=== PATIENT | male | born 1950 | race Two or more races ===

== ENCOUNTER 2024-03-24 14:49 | Inpatient (IN) | payer OTHER ==
[2024-03-24 16:00] LABS: #Basophils 0.09 10x3/uL (0.0-0.2); %Basophils 1.2 % (0.0-1.0); %Lymphocytes 24.8 % (21.0-51.0); %Monocytes 8.9 % (0.0-10.0); %Neutrophils 60.8 % (42.0-75.0); Hematocrit 34.5 % (42.0-52.0); Hemoglobin 11.1 g/dL (14.0-18.0); Mean Corpuscular HGB CONC 32.2 g/dL (32.0-36.0); Mean Corpuscular Volume 87.1 fL (78.0-98.0); Mean Platelet Volume 11.3 fL (7.4-10.4); Platelet Count 213 10x3/uL (130-400); RBC Distribution Width 14.3 % (11.5-14.5); Red Blood Cell (RBC) Count 3.96 mill/uL (4.70-6.10)
[2024-03-24 16:19] LABS: ALT (SGPT) Less than 5 U/L (8-55); AST (SGOT) 8 U/L (5-34); Albumin 3.6 g/dL (3.4-4.8); Alkaline Phosphatase 99 U/L (40-110); Anion Gap 14 mmol/L (10-20); BUN (Urea Nitrogen) 50 mg/dL (8.4-25.7); Bilirubin, Total 0.4 mg/dL (0.2-1.2); Calc. Creatinine Clearance 0 mL/min (70-130); Calcium 8.5 mg/dL (7.8-10.44); Carbon Dioxide 19 mmol/L (23-31); Chloride 109 mmol/L (98-107); Estimated GFR 10; Globulin 4.9 g/dL (2.4-3.5); Glucose 103 mg/dL (83-110); Lipase 113 U/L (8-78); Magnesium 1.9 mg/dL (1.6-2.6); Potassium 5.2 mmol/L (3.5-5.1); Protein, Total 8.5 g/dL (5.8-8.1); Sodium 137 mmol/L (136-145)
[2024-03-24 16:23] LABS: Troponin I 0.021 ng/mL (< 0.028)
[2024-03-24 16:38] LABS: Bacteria/HPF None Seen HPF (None Seen); Bilirubin Negative (Negative); Blood, Urine 1+ (Negative); CAUTI Indications for Culture Dysuria,urgency,freq; Clarity Clear (Clear); Glucose, Urine (Dipstick) 30 mg/dL (Negative); Ketone, Urine Negative (Negative); Leukocyte Negative Leu/uL (Negative); Nitrite Negative (Negative); Protein, Urine (Dipstick) 300 mg/dL (Neg-Trace); RBC/HPF 0-3 HPF (0-3); Specific Gravity, Urine 1.007 (1.002-1.036); Squamous Epithelial 0-3 HPF (0-3); Urobilinogen Normal mg/dL (Less than 2); WBC/HPF 0-3 HPF (0-3); pH, Urine 5.5 (5.0-9.0)
[2024-03-24 16:40] LABS: Urine Culture Reflex No No
[2024-03-24] MEDS ORDERED: Dextrose 50% Abboject 50 ML SYRINGE SLOW IVP PRN (18:02)
[2024-03-24] MEDS ORDERED: Glucagon 1 MG/ML KIT IM PRN (18:02)
[2024-03-24] MEDS ORDERED: Dextrose 5% in Water 1,000 ML IV PRN (18:02)
[2024-03-24] MEDS ORDERED: Ondansetron PF 4 MG/2 ML Vial IVP PRN (18:11)
[2024-03-24] MEDS ORDERED: Insulin Lispro 100 UNIT/ML 10 ML VIAL SC PRN (18:11)
[2024-03-24] MEDS ORDERED: Ondansetron ODT 4 MG TAB PO PRN (18:11)
[2024-03-24 19:22] VITALS: BMI 24.7
[2024-03-24] MEDS: Sodium Chloride 0.9% 1,000 ML IV SCH (19:23)
[2024-03-24] MEDS: Sodium Bicarbonate Tab 325 MG TAB PO SCH (22:28)
[2024-03-25] MEDS: Acetaminophen 325 MG TAB PO PRN (04:14)
[2024-03-25 04:59] LABS: #Basophils 0.12 10x3/uL (0.0-0.2); %Basophils 1.8 % (0.0-1.0); %Lymphocytes 26.8 % (21.0-51.0); %Monocytes 10.7 % (0.0-10.0); %Neutrophils 52.4 % (42.0-75.0); Hemoglobin 9.8 g/dL (14.0-18.0); Mean Corpuscular HGB CONC 31.6 g/dL (32.0-36.0); Mean Corpuscular Hemoglobin 27.8 pg (27.0-31.0); Mean Corpuscular Volume 87.8 fL (78.0-98.0); Platelet Count 192 10x3/uL (130-400); RBC Distribution Width 14.3 % (11.5-14.5); Red Blood Cell (RBC) Count 3.53 mill/uL (4.70-6.10)
[2024-03-25 05:15] LABS: Phosphorus 4.7 mg/dL (2.3-4.7)
[2024-03-25 05:19] LABS: Anion Gap 14 mmol/L (10-20); BUN (Urea Nitrogen) 46 mg/dL (8.4-25.7); Calc. Creatinine Clearance 13 mL/min (70-130); Carbon Dioxide 18 mmol/L (23-31); Chloride 114 mmol/L (98-107); Estimated GFR 12; Glucose 76 mg/dL (83-110); Iron 29 ug/dL (65-175); Iron Binding Capacity, Total 248 mcg/dL (261-462); Iron Binding Capacity, Total 251 mcg/dL (261-462); Potassium 4.7 mmol/L (3.5-5.1); Sodium 141 mmol/L (136-145)
[2024-03-25 06:01] LABS: Ferritin 54.01 ng/mL (22-322)
[2024-03-25 07:02] LABS: Influenza A by NAA Not Detected (NotDetected); Influenza B by NAA Not Detected (NotDetected); SARS-CoV-2 NAA Rapid Test Not Detected (NotDetected)
[2024-03-25] MEDS: Amlodipine 5 MG TAB PO SCH (08:14)
[2024-03-25] MEDS: Rosuvastatin 10 MG TAB PO SCH (08:15)
[2024-03-25 12:23] LABS: Hep C IgG Ab NONREACTIVE S/CO (NonReactive); Hep C Index 0.14 S/CO (0-0.79)
[2024-03-25 13:13] LABS: Creatinine, Urine 32.19 mg/dL (63-166)
[2024-03-25 13:54] LABS: HBsAg Index 0.35 S/CO (0-0.99); Hep B Surf Ag NonReactive S/CO (NonReactive)
[2024-03-25] MEDS: Ferrous Sulfate 325 MG TAB PO SCH (17:04)
[2024-03-25] MEDS: Insulin Lispro 100 UNIT/ML 10 ML VIAL SC PRN (17:05)
[2024-03-25] MEDS: Sodium Bicarbonate Tab 325 MG TAB PO SCH (19:37)
[2024-03-26 06:09] LABS: %Basophils 1.4 % (0.0-1.0); %Eosinophils 8.9 % (0.0-10.0); %Lymphocytes 24.9 % (21.0-51.0); %Monocytes 9.2 % (0.0-10.0); %Neutrophils 55.2 % (42.0-75.0); Hemoglobin 10.2 g/dL (14.0-18.0); Mean Corpuscular HGB CONC 31.9 g/dL (32.0-36.0); Mean Corpuscular Hemoglobin 27.7 pg (27.0-31.0); Mean Platelet Volume 11.6 fL (7.4-10.4); Platelet Count 184 10x3/uL (130-400); RBC Distribution Width 14.3 % (11.5-14.5); Red Blood Cell (RBC) Count 3.68 mill/uL (4.70-6.10)
[2024-03-26 06:45] LABS: Anion Gap 13 mmol/L (10-20); BUN (Urea Nitrogen) 40 mg/dL (8.4-25.7); Calc. Creatinine Clearance 15 mL/min (70-130); Calcium 7.9 mg/dL (7.8-10.44); Carbon Dioxide 19 mmol/L (23-31); Chloride 115 mmol/L (98-107); Estimated GFR 14; Glucose 82 mg/dL (83-110); Iron 44 ug/dL (65-175); Iron Binding Capacity, Total 245 mcg/dL (261-462); Potassium 4.9 mmol/L (3.5-5.1); Sodium 142 mmol/L (136-145)
[2024-03-26] MEDS: Benzonatate 100 MG CAP PO PRN (20:33)
[2024-03-27 04:56] LABS: %Basophils 1.3 % (0.0-1.0); %Eosinophils 8.9 % (0.0-10.0); %Monocytes 9.8 % (0.0-10.0); %Neutrophils 46.6 % (42.0-75.0); Hematocrit 28.8 % (42.0-52.0); Hemoglobin 9.2 g/dL (14.0-18.0); Mean Corpuscular HGB CONC 31.9 g/dL (32.0-36.0); Mean Corpuscular Hemoglobin 27.5 pg (27.0-31.0); Mean Platelet Volume 11.9 fL (7.4-10.4); Platelet Count 178 10x3/uL (130-400); RBC Distribution Width 14.1 % (11.5-14.5); Red Blood Cell (RBC) Count 3.35 mill/uL (4.70-6.10)
[2024-03-27 05:18] LABS: Anion Gap 11 mmol/L (10-20); BUN (Urea Nitrogen) 34 mg/dL (8.4-25.7); Calc. Creatinine Clearance 15 mL/min (70-130); Calcium 7.6 mg/dL (7.8-10.44); Carbon Dioxide 18 mmol/L (23-31); Chloride 115 mmol/L (98-107); Estimated GFR 14; Glucose 83 mg/dL (83-110); Potassium 4.3 mmol/L (3.5-5.1); Sodium 140 mmol/L (136-145)
[2024-03-27] MEDS: Calcitriol 0.25 MCG CAP PO SCH (09:48)
[2024-03-28 04:44] LABS: #Basophils 0.11 10x3/uL (0.0-0.2); %Basophils 1.6 % (0.0-1.0); %Eosinophils 9.2 % (0.0-10.0); %Lymphocytes 31.6 % (21.0-51.0); %Monocytes 11.1 % (0.0-10.0); %Neutrophils 46.1 % (42.0-75.0); Hematocrit 28.9 % (42.0-52.0); Hemoglobin 9.3 g/dL (14.0-18.0); Mean Corpuscular HGB CONC 32.2 g/dL (32.0-36.0); Mean Corpuscular Hemoglobin 28.3 pg (27.0-31.0); Mean Corpuscular Volume 87.8 fL (78.0-98.0); Mean Platelet Volume 11.9 fL (7.4-10.4); Platelet Count 165 10x3/uL (130-400); RBC Distribution Width 14.3 % (11.5-14.5); Red Blood Cell (RBC) Count 3.29 mill/uL (4.70-6.10)
[2024-03-28 05:36] LABS: Anion Gap 13 mmol/L (10-20); BUN (Urea Nitrogen) 29 mg/dL (8.4-25.7); Calc. Creatinine Clearance 17 mL/min (70-130); Calcium 7.6 mg/dL (7.8-10.44); Carbon Dioxide 18 mmol/L (23-31); Chloride 115 mmol/L (98-107); Estimated GFR 16; Glucose 79 mg/dL (83-110); Potassium 4.1 mmol/L (3.5-5.1); Sodium 142 mmol/L (136-145)
[2024-03-28 09:25] LABS: %Basophils 1.4 % (0.0-1.0); %Eosinophils 7.8 % (0.0-10.0); %Monocytes 7.9 % (0.0-10.0); %Neutrophils 57.5 % (42.0-75.0); Hematocrit 29.6 % (42.0-52.0); Hemoglobin 9.4 g/dL (14.0-18.0); Mean Corpuscular HGB CONC 31.8 g/dL (32.0-36.0); Mean Corpuscular Hemoglobin 27.9 pg (27.0-31.0); Mean Corpuscular Volume 87.8 fL (78.0-98.0); Mean Platelet Volume 11.5 fL (7.4-10.4); Platelet Count 183 10x3/uL (130-400); RBC Distribution Width 14.3 % (11.5-14.5); Red Blood Cell (RBC) Count 3.37 mill/uL (4.70-6.10)
[2024-03-28] MEDS: Guaifenesin DM 100-10/5 ML UDCUP PO PRN (10:17)
[2024-03-28] MEDS ORDERED: hydrALAZINE 25 MG TAB PO PRN (12:42)
[2024-03-28] MEDS ORDERED: Labetalol HCl 100 MG/20 ML VIAL SLOW IVP PRN (12:43)
[2024-03-28] MEDS: Amlodipine 5 MG TAB PO SCH (13:13)
[2024-03-28] MEDS: Benzonatate 100 MG CAP PO SCH (16:21)
[2024-03-28] MEDS: Carvedilol 3.125 MG TAB PO SCH (16:21)
[2024-03-28] MEDS: Senokot S 8.6-50 MG TAB PO SCH (20:37)
[2024-03-28] MEDS ORDERED: guaiFENesin ER 600 MG TAB PO SCH (21:00)
[2024-03-29 06:02] LABS: Anion Gap 11 mmol/L (10-20); BUN (Urea Nitrogen) 26 mg/dL (8.4-25.7); Calc. Creatinine Clearance 18 mL/min (70-130); Calcium 7.6 mg/dL (7.8-10.44); Carbon Dioxide 18 mmol/L (23-31); Chloride 115 mmol/L (98-107); Estimated GFR 16; Glucose 76 mg/dL (83-110); Potassium 4.1 mmol/L (3.5-5.1); Sodium 140 mmol/L (136-145)
[2024-03-29] MEDS: Cyanocobalamin (Vitamin B-12) 1,000 MCG TAB PO SCH (10:19)
[2024-03-29] MEDS: Amlodipine 10 MG TAB PO SCH (10:21)
[2024-03-30 05:08] LABS: #Basophils 0.08 10x3/uL (0.0-0.2); %Eosinophils 7.2 % (0.0-10.0); %Lymphocytes 24.5 % (21.0-51.0); %Monocytes 6.7 % (0.0-10.0); %Neutrophils 60.2 % (42.0-75.0); Hematocrit 27.7 % (42.0-52.0); Mean Corpuscular HGB CONC 32.5 g/dL (32.0-36.0); Mean Platelet Volume 11.7 fL (7.4-10.4); Platelet Count 180 10x3/uL (130-400); RBC Distribution Width 14.2 % (11.5-14.5); Red Blood Cell (RBC) Count 3.22 mill/uL (4.70-6.10)
[2024-03-30 05:21] LABS: Anion Gap 10 mmol/L (10-20); BUN (Urea Nitrogen) 25 mg/dL (8.4-25.7); Calc. Creatinine Clearance 17 mL/min (70-130); Calcium 7.6 mg/dL (7.8-10.44); Carbon Dioxide 19 mmol/L (23-31); Chloride 118 mmol/L (98-107); Estimated GFR 16; Glucose 80 mg/dL (83-110); Potassium 4.2 mmol/L (3.5-5.1); Sodium 143 mmol/L (136-145)
[2024-03-30 11:13] VITALS: BP 154/72; TEMP 98.1
== END 2024-03-30 14:31 | disposition home or self-care (01) | DRG 683 ==
LOC: ERS 14:49 → OBS 17:48 → OBSVTOIN 03-25 11:17
PROVIDERS: ADMIT Internal Medicine; ATTEND Internal Medicine
DX: N17.9 Acute kidney failure, unspecified (principal); E87.20 Acidosis, unspecified; E87.5 Hyperkalemia; N18.30 Chronic kidney disease, stage 3 unspecified; E53.8 Deficiency of other specified B group vitamins; E55.9 Vitamin D deficiency, unspecified; E11.22 Type 2 diabetes mellitus with diabetic chronic kidney disease; N25.81 Secondary hyperparathyroidism of renal origin; D63.1 Anemia in chronic kidney disease; I13.10 Hypertensive heart and chronic kidney disease without heart failure, with stage 1 through stage 4 chronic kidney disease, or unspecified chronic kidney disease; I35.1 Nonrheumatic aortic (valve) insufficiency; I25.10 Atherosclerotic heart disease of native coronary artery without angina pectoris; E78.5 Hyperlipidemia, unspecified; I34.0 Nonrheumatic mitral (valve) insufficiency; E11.649 Type 2 diabetes mellitus with hypoglycemia without coma; R50.9 Fever, unspecified; Z95.5 Presence of coronary angioplasty implant and graft; Z79.899 Other long term (current) drug therapy; Z79.84 Long term (current) use of oral hypoglycemic drugs
CPT/HCPCS: 36415; 36416; 71045; 76770; 80048; 80053; 81001; 82042; 82570; 82607; 82728; 83540; 83550; 83690; 83735; 83880; 83970; 84100; 84156; 84484; 85025; 86803; 87040; 87340; 93005; 93306; G0378; J1815

== ENCOUNTER 2024-04-03 08:05 | Outpatient (CLI) | payer OTHER | END 2024-04-03 08:06 | disposition home or self-care (01) | LOC: SCSRAD 08:05 | PROVIDERS: ATTEND Student in an Organized Health Care Education/Training Program | DX: R06.00 Dyspnea, unspecified (principal); J90 Pleural effusion, not elsewhere classified | CPT/HCPCS: 71046 ==

== ENCOUNTER 2024-04-03 15:01 | Inpatient (IN) | payer OTHER ==
[2024-04-03] MEDS ORDERED: Albuterol 2.5 MG (3 mL) NEB ONE (16:00)
[2024-04-03] MEDS ORDERED: Ipratropium Bromide 2.5 ml Neb ONE (16:00)
[2024-04-03 16:15] LABS: ALT (SGPT) 7 U/L (8-55); AST (SGOT) 9 U/L (5-34); Albumin 3.3 g/dL (3.4-4.8); Alkaline Phosphatase 99 U/L (40-110); Anion Gap 17 mmol/L (10-20); BUN (Urea Nitrogen) 42 mg/dL (8.4-25.7); Bilirubin, Total 0.4 mg/dL (0.2-1.2); Calc. Creatinine Clearance 0 mL/min (70-130); Calcium 7.8 mg/dL (7.8-10.44); Carbon Dioxide 15 mmol/L (23-31); Chloride 113 mmol/L (98-107); Estimated GFR 11; Glucose 130 mg/dL (83-110); Potassium 4.5 mmol/L (3.5-5.1); Protein, Total 8.3 g/dL (5.8-8.1); Sodium 140 mmol/L (136-145)
[2024-04-03 16:16] LABS: #Basophils 0.08 10x3/uL (0.0-0.2); %Basophils 0.7 % (0.0-1.0); %Eosinophils 0.9 % (0.0-10.0); %Lymphocytes 18.9 % (21.0-51.0); %Monocytes 7.7 % (0.0-10.0); %Neutrophils 70.8 % (42.0-75.0); Hematocrit 32.8 % (42.0-52.0); Hemoglobin 10.8 g/dL (14.0-18.0); Mean Corpuscular HGB CONC 32.9 g/dL (32.0-36.0); Mean Corpuscular Hemoglobin 27.8 pg (27.0-31.0); Mean Corpuscular Volume 84.5 fL (78.0-98.0); Mean Platelet Volume 11.1 fL (7.4-10.4); Platelet Count 257 10x3/uL (130-400); RBC Distribution Width 14.5 % (11.5-14.5); Red Blood Cell (RBC) Count 3.88 mill/uL (4.70-6.10)
[2024-04-03 16:22] LABS: Troponin I 0.038 ng/mL (< 0.028)
[2024-04-03 16:28] LABS: Bacteria/HPF None Seen HPF (None Seen); Bilirubin Negative (Negative); Blood, Urine 1+ (Negative); CAUTI Indications for Culture Dysuria,urgency,freq; Clarity Clear (Clear); Glucose, Urine (Dipstick) 70 mg/dL (Negative); Ketone, Urine Negative (Negative); Leukocyte Negative Leu/uL (Negative); Nitrite Negative (Negative); Protein, Urine (Dipstick) 200 mg/dL (Neg-Trace); RBC/HPF 0-3 HPF (0-3); Specific Gravity, Urine 1.004 (1.002-1.036); Squamous Epithelial 0-3 HPF (0-3); Urobilinogen Normal mg/dL (Less than 2); WBC/HPF 0-3 HPF (0-3); pH, Urine 5.5 (5.0-9.0)
[2024-04-03 16:48] LABS: Urine Culture Reflex No No
[2024-04-03] MEDS ORDERED: Acetaminophen 650 MG Suppository PR PRN (17:31)
[2024-04-03] MEDS ORDERED: Ondansetron PF 4 MG/2 ML Vial IVP PRN (17:31)
[2024-04-03] MEDS ORDERED: Bisacodyl 5 MG TAB PO PRN (17:31)
[2024-04-03] MEDS ORDERED: Ondansetron ODT 4 MG TAB PO PRN (17:31)
[2024-04-03] MEDS ORDERED: Senokot S 8.6-50 MG TAB PO PRN (17:31)
[2024-04-03] MEDS ORDERED: Acetaminophen 325 MG TAB PO PRN (17:31)
[2024-04-03] MEDS ORDERED: Ipratropium/Albuterol 3 ML NEB NEB PRN (17:33)
[2024-04-03] MEDS ORDERED: Insulin Regular, Human 100 UNIT/ML 10 ML VIAL SC PRN ×2 (17:34)
[2024-04-03] MEDS ORDERED: Glucagon 1 MG/ML KIT IM PRN (17:34)
[2024-04-03] MEDS ORDERED: hydrALAZINE 25 MG TAB PO PRN (17:34)
[2024-04-03] MEDS ORDERED: Dextrose 50% Abboject 50 ML SYRINGE SLOW IVP PRN (17:34)
[2024-04-03] MEDS ORDERED: Dextrose 5% in Water 1,000 ML IV PRN (17:34)
[2024-04-03] MEDS: Furosemide 40 MG (4 mL) VIAL SLOW IVP SCH (18:20)
[2024-04-03 19:41] LABS: Troponin I 0.039 ng/mL (< 0.028)
[2024-04-03] MEDS: Heparin 5,000 UNITS/ML VIAL SC SCH (21:28)
[2024-04-05] MEDS ORDERED: Calcitriol 0.25 MCG CAP ONE (09:57)
[2024-04-05] MEDS ORDERED: Rosuvastatin 10 MG TAB ONE (09:57)
[2024-04-05] MEDS ORDERED: Cyanocobalamin (Vitamin B-12) 1,000 MCG TAB ONE (09:57)
[2024-04-05] MEDS ORDERED: Amlodipine 10 MG TAB ONE (09:57)
[2024-04-05] MEDS: Furosemide 40 MG (4 mL) VIAL SLOW IVP SCH (17:54)
[2024-04-05] MEDS: Calcitriol 0.25 MCG CAP PO SCH (17:54)
[2024-04-05] MEDS: Amlodipine 10 MG TAB PO SCH (17:54)
[2024-04-05] MEDS: Rosuvastatin 10 MG TAB PO SCH (17:55)
[2024-04-05] MEDS: Cyanocobalamin (Vitamin B-12) 1,000 MCG TAB PO SCH (17:55)
[2024-04-05] MEDS ORDERED: Heparin 5,000 UNITS/ML VIAL ONE (21:55)
[2024-04-05 23:05] LABS: #Basophils 0.08 10x3/uL (0.0-0.2); %Basophils 0.9 % (0.0-1.0); %Monocytes 7.2 % (0.0-10.0); Hematocrit 31.1 % (42.0-52.0); Hemoglobin 10.2 g/dL (14.0-18.0); Mean Corpuscular HGB CONC 32.8 g/dL (32.0-36.0); Mean Corpuscular Hemoglobin 27.3 pg (27.0-31.0); Mean Corpuscular Volume 83.4 fL (78.0-98.0); Mean Platelet Volume 11.5 fL (7.4-10.4); Platelet Count 249 10x3/uL (130-400); Potassium 4.5 mmol/L (3.5-5.1); RBC Distribution Width 14.1 % (11.5-14.5); Red Blood Cell (RBC) Count 3.73 mill/uL (4.70-6.10); Sodium 140 mmol/L (136-145)
[2024-04-05 23:06] LABS: Carbon Dioxide 19 mmol/L (23-31); Chloride 110 mmol/L (98-107)
[2024-04-05 23:07] LABS: Anion Gap 16 mmol/L (10-20); BUN (Urea Nitrogen) 47 mg/dL (8.4-25.7); Calc. Creatinine Clearance 11 mL/min (70-130); Estimated GFR 9; Glucose 135 mg/dL (83-110)
[2024-04-06 05:18] LABS: #Basophils 0.07 10x3/uL (0.0-0.2); %Basophils 0.7 % (0.0-1.0); %Lymphocytes 24.6 % (21.0-51.0); %Monocytes 8.5 % (0.0-10.0); %Neutrophils 60.5 % (42.0-75.0); Hematocrit 30.7 % (42.0-52.0); Mean Corpuscular HGB CONC 32.6 g/dL (32.0-36.0); Mean Corpuscular Hemoglobin 27.7 pg (27.0-31.0); Platelet Count 276 10x3/uL (130-400); Red Blood Cell (RBC) Count 3.61 mill/uL (4.70-6.10)
[2024-04-06 05:41] LABS: ALT (SGPT) 9 U/L (8-55); AST (SGOT) 11 U/L (5-34); Albumin 2.8 g/dL (3.4-4.8); Alkaline Phosphatase 78 U/L (40-110); Anion Gap 16 mmol/L (10-20); BUN (Urea Nitrogen) 46 mg/dL (8.4-25.7); Bilirubin, Total 0.3 mg/dL (0.2-1.2); Calc. Creatinine Clearance 11 mL/min (70-130); Carbon Dioxide 19 mmol/L (23-31); Chloride 112 mmol/L (98-107); Estimated GFR 9; Globulin 4.6 g/dL (2.4-3.5); Glucose 103 mg/dL (83-110); Potassium 4.4 mmol/L (3.5-5.1); Protein, Total 7.4 g/dL (5.8-8.1); Sodium 143 mmol/L (136-145)
[2024-04-06] MEDS ORDERED: Furosemide 40 MG (4 mL) VIAL ONE (05:56)
[2024-04-06] MEDS: Furosemide 40 MG (4 mL) VIAL ONE (06:02)
[2024-04-06] MEDS ORDERED: Epoetin (ESRD) 20,000 UNITS/ML MDV SC SCH (08:45)
[2024-04-06] MEDS ORDERED: Non-Formulary Item 1 EACH (Albuterol 200 PUFF Inh) INH PRN (09:07)
[2024-04-06 11:27] LABS: Critical Call Chem Troponin I CRITICAL CALL TEST; Troponin I 0.587 ng/mL (< 0.028)
[2024-04-06] MEDS: EPOETIN ALFA-EPBX (ESRD) 10,000 UNITS/ML VIAL SC SCH (13:25)
[2024-04-06 14:32] LABS: HBSAB Concentration Less than 8.00 mIU/mL; HBsAg Index 0.26 S/CO (0-0.99); Hep B Core Total Ab NONREACTIVE (NonReactive); Hep B Core Total Index 0.42 S/CO (0-0.79); Hep B Surf AB NONREACTIVE (NonReactive); Hep B Surf Ag NONREACTIVE S/CO (NonReactive); Hep C IgG Ab NONREACTIVE S/CO (NonReactive); Hep C Index 0.16 S/CO (0-0.79)
[2024-04-06] MEDS: Sodium Bicarbonate Tab 325 MG TAB PO SCH (21:37)
[2024-04-07 07:08] LABS: #Basophils 0.09 10x3/uL (0.0-0.2); %Eosinophils 7.5 % (0.0-10.0); %Lymphocytes 25.1 % (21.0-51.0); %Neutrophils 56.8 % (42.0-75.0); Hematocrit 29.4 % (42.0-52.0); Hemoglobin 9.6 g/dL (14.0-18.0); Mean Corpuscular HGB CONC 32.7 g/dL (32.0-36.0); Mean Corpuscular Hemoglobin 27.8 pg (27.0-31.0); Mean Corpuscular Volume 85.2 fL (78.0-98.0); Mean Platelet Volume 11.5 fL (7.4-10.4); Platelet Count 275 10x3/uL (130-400); RBC Distribution Width 14.1 % (11.5-14.5); Red Blood Cell (RBC) Count 3.45 mill/uL (4.70-6.10)
[2024-04-07 07:44] LABS: Anion Gap 18 mmol/L (10-20); BUN (Urea Nitrogen) 47 mg/dL (8.4-25.7); Calc. Creatinine Clearance 11 mL/min (70-130); Calcium 7.9 mg/dL (7.8-10.44); Carbon Dioxide 20 mmol/L (23-31); Chloride 108 mmol/L (98-107); Estimated GFR 9; Glucose 94 mg/dL (83-110); Potassium 4.5 mmol/L (3.5-5.1); Sodium 141 mmol/L (136-145)
[2024-04-07] MEDS: Guaifenesin DM 100-10/5 ML UDCUP PO PRN (13:11)
[2024-04-07] MEDS ORDERED: CEFAZOLIN 2 GM in Sodium Chloride 0.9% 100 ML IVPB SCH (13:45)
[2024-04-07] MEDS: Ipratropium/Albuterol 3 ML NEB NEB SCH ×2 (14:43→18:33)
[2024-04-07] MEDS: Sodium Chloride 0.9% 1,000 ML IV SCH (15:49)
[2024-04-08] MEDS: Albuterol 200 PUFF (6.7GM INHALER) INH PRN (06:58)
[2024-04-08 07:43] LABS: #Basophils 0.11 10x3/uL (0.0-0.2); %Basophils 1.2 % (0.0-1.0); %Eosinophils 8.4 % (0.0-10.0); %Lymphocytes 22.4 % (21.0-51.0); %Monocytes 8.4 % (0.0-10.0); %Neutrophils 59.2 % (42.0-75.0); Hematocrit 28.3 % (42.0-52.0); Hemoglobin 9.1 g/dL (14.0-18.0); Mean Corpuscular HGB CONC 32.2 g/dL (32.0-36.0); Mean Corpuscular Hemoglobin 27.4 pg (27.0-31.0); Mean Corpuscular Volume 85.2 fL (78.0-98.0); Mean Platelet Volume 11.3 fL (7.4-10.4); Platelet Count 275 10x3/uL (130-400); RBC Distribution Width 14.2 % (11.5-14.5); Red Blood Cell (RBC) Count 3.32 mill/uL (4.70-6.10)
[2024-04-08 08:09] LABS: Anion Gap 19 mmol/L (10-20); BUN (Urea Nitrogen) 45 mg/dL (8.4-25.7); Calc. Creatinine Clearance 11 mL/min (70-130); Calcium 7.7 mg/dL (7.8-10.44); Carbon Dioxide 20 mmol/L (23-31); Chloride 106 mmol/L (98-107); Estimated GFR 10; Glucose 121 mg/dL (83-110); Iron 24 ug/dL (65-175); Iron Binding Capacity, Total 206 mcg/dL (261-462); Potassium 4.2 mmol/L (3.5-5.1); Sodium 141 mmol/L (136-145)
[2024-04-08] MEDS: Ferrous Sulfate 325 MG TAB PO SCH ×2 (08:39→17:07)
[2024-04-08] MEDS: Calcium Carbonate 500 MG ChewTAB PO SCH (09:53)
[2024-04-08] MEDS: Benzonatate 100 MG CAP PO SCH (17:06)
[2024-04-08] MEDS: guaiFENesin/DM ER PO SCH (21:41)
[2024-04-09] MEDS: Acetaminophen 650 MG/20.3 ML UDCUP PO PRN (04:35)
[2024-04-09] MEDS: ALPRAZolam 0.5 MG TAB PO SCH (04:43)
[2024-04-09 05:37] LABS: %Basophils 1.2 % (0.0-1.0); %Eosinophils 8.2 % (0.0-10.0); %Monocytes 9.6 % (0.0-10.0); %Neutrophils 52.4 % (42.0-75.0); Hematocrit 27.5 % (42.0-52.0); Hemoglobin 9.1 g/dL (14.0-18.0); Mean Corpuscular HGB CONC 33.1 g/dL (32.0-36.0); Mean Corpuscular Hemoglobin 27.4 pg (27.0-31.0); Mean Corpuscular Volume 82.8 fL (78.0-98.0); Mean Platelet Volume 11.7 fL (7.4-10.4); Platelet Count 269 10x3/uL (130-400); RBC Distribution Width 14.3 % (11.5-14.5); Red Blood Cell (RBC) Count 3.32 mill/uL (4.70-6.10)
[2024-04-09 05:56] LABS: Anion Gap 15 mmol/L (10-20); BUN (Urea Nitrogen) 40 mg/dL (8.4-25.7); Calc. Creatinine Clearance 11 mL/min (70-130); Calcium 8.2 mg/dL (7.8-10.44); Carbon Dioxide 20 mmol/L (23-31); Chloride 106 mmol/L (98-107); Estimated GFR 10; Glucose 102 mg/dL (83-110); Potassium 4.2 mmol/L (3.5-5.1); Sodium 137 mmol/L (136-145)
[2024-04-09 12:01] LABS: Critical Call Chem Troponin I NUR.PD7
[2024-04-09 12:02] LABS: Troponin I 0.911 ng/mL (< 0.028)
[2024-04-09] MEDS: Nitroglycerin 0.4 MG TAB (25 Tab Bottle) ONE (15:59)
[2024-04-09 16:11] LABS: Troponin I 0.098 ng/mL (< 0.028)
[2024-04-09] MEDS ORDERED: Nitroglycerin 0.4 MG TAB (25 Tab Bottle) SL PRN (16:37)
[2024-04-09] MEDS: Aspirin 325 MG TAB PO SCH (17:01)
[2024-04-09 19:50] LABS: Troponin I 0.101 ng/mL (< 0.028)
[2024-04-10 05:46] LABS: #Basophils 0.11 10x3/uL (0.0-0.2); %Basophils 1.4 % (0.0-1.0); %Eosinophils 10.5 % (0.0-10.0); %Lymphocytes 25.7 % (21.0-51.0); %Monocytes 9.5 % (0.0-10.0); %Neutrophils 52.5 % (42.0-75.0); Hemoglobin 8.4 g/dL (14.0-18.0); Mean Corpuscular HGB CONC 32.3 g/dL (32.0-36.0); Mean Corpuscular Hemoglobin 27.5 pg (27.0-31.0); Mean Corpuscular Volume 85.2 fL (78.0-98.0); Mean Platelet Volume 11.2 fL (7.4-10.4); Platelet Count 256 10x3/uL (130-400); RBC Distribution Width 14.3 % (11.5-14.5); Red Blood Cell (RBC) Count 3.05 mill/uL (4.70-6.10)
[2024-04-10 05:54] VITALS: BMI 24.3
[2024-04-10 06:25] LABS: Anion Gap 13 mmol/L (10-20); BUN (Urea Nitrogen) 44 mg/dL (8.4-25.7); Calc. Creatinine Clearance 11 mL/min (70-130); Calcium 8.1 mg/dL (7.8-10.44); Carbon Dioxide 22 mmol/L (23-31); Chloride 107 mmol/L (98-107); Estimated GFR 10; Glucose 83 mg/dL (83-110); Potassium 5.1 mmol/L (3.5-5.1); Sodium 137 mmol/L (136-145)
[2024-04-10 08:18] VITALS: BP 126/61; TEMP 97.9
[2024-04-10] MEDS: Aspirin Chewable 81 MG TAB PO SCH (09:09)
[2024-04-11 15:14] LABS: A/G Ratio 0.8 (0.7-1.7); Albumin 2.9 g/dL (2.9-4.4); Alpha 1 0.3 g/dL (0.0-0.4); Alpha 2 0.9 g/dL (0.4-1.0); Beta 0.8 g/dL (0.7-1.3); Gamma 1.7 g/dL (0.4-1.8); Globulin, Total 3.6 g/dL (2.2-3.9); M-Spike Not Observed g/dL (Not Observed)
[2024-04-12 16:15] LABS: Albumin-Ur 55.1 % (.); Alpha 1 - Ur 3.5 % (.); Alpha 2 - Ur 8.3 % (.); Beta-Ur 14.2 % (.); Gamma-Ur 18.8 % (.); M-Spike,% Not Observed % (Not Observed); Protein, Urine 108.2 mg/dL (Not Estab.)
== END 2024-04-10 14:23 | disposition home or self-care (01) | DRG 682 ==
LOC: ERS 15:01 → OBS 16:48 → OBSVTOIN 04-06 09:07
PROVIDERS: ADMIT Internal Medicine; ATTEND Family Medicine
DX: N17.9 Acute kidney failure, unspecified (principal); I21.A1 Myocardial infarction type 2; I13.2 Hypertensive heart and chronic kidney disease with heart failure and with stage 5 chronic kidney disease, or end stage renal disease; N18.6 End stage renal disease; N25.81 Secondary hyperparathyroidism of renal origin; I50.9 Heart failure, unspecified; E11.22 Type 2 diabetes mellitus with diabetic chronic kidney disease; E78.5 Hyperlipidemia, unspecified; D63.1 Anemia in chronic kidney disease; I25.10 Atherosclerotic heart disease of native coronary artery without angina pectoris; R91.8 Other nonspecific abnormal finding of lung field; Z95.5 Presence of coronary angioplasty implant and graft; Z53.20 Procedure and treatment not carried out because of patient's decision for unspecified reasons; Z79.899 Other long term (current) drug therapy; E83.51 Hypocalcemia; R07.9 Chest pain, unspecified; R80.9 Proteinuria, unspecified; I35.1 Nonrheumatic aortic (valve) insufficiency; E11.21 Type 2 diabetes mellitus with diabetic nephropathy
CPT/HCPCS: 36415; 36416; 71045; 80048; 80053; 82728; 83540; 83550; 83880; 84155; 84156; 84165; 84166; 84484; 85025; 86704; 86706; 86803; 87340; 93005; 93010; 94640; 94760; 96372; 96374; 96376; G0378; J1644; J1940; J7620

== ENCOUNTER 2024-04-13 14:46 | Emergency (ER) | payer OTHER | END 2024-04-13 15:09 | disposition home or self-care (01) | LOC: ERS 14:46 | DX: Z53.21 Procedure and treatment not carried out due to patient leaving prior to being seen by health care provider (principal) ==

== ENCOUNTER 2024-04-13 15:29 | Observation (INO) | payer OTHER ==
[2024-04-13 17:21] LABS: %Basophils 1.3 % (0.0-1.0); %Eosinophils 8.4 % (0.0-10.0); %Lymphocytes 29.2 % (21.0-51.0); %Monocytes 9.6 % (0.0-10.0); Hematocrit 30.2 % (42.0-52.0); Hemoglobin 9.6 g/dL (14.0-18.0); Mean Corpuscular HGB CONC 31.8 g/dL (32.0-36.0); Mean Corpuscular Hemoglobin 27.5 pg (27.0-31.0); Mean Corpuscular Volume 86.5 fL (78.0-98.0); Mean Platelet Volume 11.5 fL (7.4-10.4); Platelet Count 285 10x3/uL (130-400); RBC Distribution Width 14.3 % (11.5-14.5); Red Blood Cell (RBC) Count 3.49 mill/uL (4.70-6.10)
[2024-04-13 17:48] LABS: ALT (SGPT) 10 U/L (8-55); AST (SGOT) 12 U/L (5-34); Albumin 3.1 g/dL (3.4-4.8); Alkaline Phosphatase 75 U/L (40-110); Anion Gap 16 mmol/L (10-20); BUN (Urea Nitrogen) 44 mg/dL (8.4-25.7); Bilirubin, Total 0.3 mg/dL (0.2-1.2); Calc. Creatinine Clearance 0 mL/min (70-130); Calcium 8.3 mg/dL (7.8-10.44); Carbon Dioxide 20 mmol/L (23-31); Chloride 106 mmol/L (98-107); Estimated GFR 8; Globulin 4.9 g/dL (2.4-3.5); Glucose 104 mg/dL (83-110); Potassium 5.3 mmol/L (3.5-5.1); Sodium 137 mmol/L (136-145)
[2024-04-13 17:49] LABS: Magnesium 2.4 mg/dL (1.6-2.6)
[2024-04-13] MEDS ORDERED: Ondansetron PF 4 MG/2 ML Vial IVP PRN (18:16)
[2024-04-13] MEDS ORDERED: Ondansetron ODT 4 MG TAB PO PRN (18:16)
[2024-04-13] MEDS ORDERED: Acetaminophen 325 MG TAB PO PRN (18:16)
[2024-04-13] MEDS ORDERED: hydrALAZINE 25 MG TAB PO PRN (19:04)
[2024-04-13] MEDS: Heparin 5,000 UNITS/ML VIAL SC SCH (22:08)
[2024-04-13] MEDS: Sodium Bicarbonate Tab 325 MG TAB PO SCH (22:08)
[2024-04-13 23:53] VITALS: BMI 25.7
[2024-04-14 05:29] LABS: #Basophils 0.09 10x3/uL (0.0-0.2); %Basophils 1.4 % (0.0-1.0); %Eosinophils 11.5 % (0.0-10.0); %Lymphocytes 33.3 % (21.0-51.0); %Monocytes 10.6 % (0.0-10.0); %Neutrophils 42.9 % (42.0-75.0); Hematocrit 27.5 % (42.0-52.0); Hemoglobin 8.8 g/dL (14.0-18.0); Mean Corpuscular Hemoglobin 27.3 pg (27.0-31.0); Mean Corpuscular Volume 85.4 fL (78.0-98.0); Mean Platelet Volume 11.1 fL (7.4-10.4); Platelet Count 252 10x3/uL (130-400); Red Blood Cell (RBC) Count 3.22 mill/uL (4.70-6.10)
[2024-04-14 05:44] LABS: ALT (SGPT) 6 U/L (8-55); AST (SGOT) 10 U/L (5-34); Albumin 2.7 g/dL (3.4-4.8); Alkaline Phosphatase 65 U/L (40-110); Anion Gap 15 mmol/L (10-20); BUN (Urea Nitrogen) 44 mg/dL (8.4-25.7); Bilirubin, Total 0.3 mg/dL (0.2-1.2); Calc. Creatinine Clearance 11 mL/min (70-130); Calcium 7.6 mg/dL (7.8-10.44); Carbon Dioxide 21 mmol/L (23-31); Chloride 105 mmol/L (98-107); Estimated GFR 9; Glucose 68 mg/dL (83-110); Potassium 4.7 mmol/L (3.5-5.1); Protein, Total 6.7 g/dL (5.8-8.1); Sodium 136 mmol/L (136-145)
[2024-04-14] MEDS: Cyanocobalamin (Vitamin B-12) 1,000 MCG TAB PO SCH (09:12)
[2024-04-14] MEDS: Amlodipine 10 MG TAB PO SCH (09:12)
[2024-04-14] MEDS: Aspirin Chewable 81 MG TAB PO SCH (09:12)
[2024-04-14] MEDS: Rosuvastatin 10 MG TAB PO SCH (09:12)
[2024-04-14] MEDS: Pantoprazole DR 40 MG TAB PO SCH (09:13)
[2024-04-14] MEDS: Calcitriol 0.25 MCG CAP PO SCH (09:13)
[2024-04-14] MEDS: Ferrous Sulfate 325 MG TAB PO SCH (09:13)
[2024-04-14] MEDS: Sodium Ferric Gluconate 250 MG in Sodium Chloride 0.9% 250 ML 250 ML IVPB SCH (11:09)
[2024-04-14] MEDS: Sodium Bicarbonate Tab 325 MG TAB PO SCH ×2 (12:43→20:51)
[2024-04-14] MEDS: Albumin 25% 25 GM (100 mL) BOT IVPB SCH (15:05)
[2024-04-14] MEDS: EPOETIN ALFA-EPBX (ESRD) 10,000 UNITS/ML VIAL SC SCH (18:18)
[2024-04-14] MEDS: traMADol HCl 50 MG TAB PO PRN (22:30)
[2024-04-15] MEDS: Nitroglycerin 0.4 MG TAB (25 Tab Bottle) SL PRN (02:47)
[2024-04-15 04:47] LABS: Troponin I 0.028 ng/mL (< 0.028)
[2024-04-15 08:09] LABS: Albumin 3.3 g/dL (3.4-4.8); Anion Gap 19 mmol/L (10-20); BUN (Urea Nitrogen) 41 mg/dL (8.4-25.7); BUN/Creatinine Ratio 6.59; Calc. Creatinine Clearance 11 mL/min (70-130); Calcium 8.1 mg/dL (7.8-10.44); Carbon Dioxide 17 mmol/L (23-31); Chloride 107 mmol/L (98-107); Estimated GFR 9; Glucose 82 mg/dL (83-110); Phosphorus 6.1 mg/dL (2.3-4.7); Potassium 5.1 mmol/L (3.5-5.1); Sodium 138 mmol/L (136-145)
[2024-04-15 08:44] LABS: #Basophils 0.07 10x3/uL (0.0-0.2); %Basophils 1.1 % (0.0-1.0); %Eosinophils 8.1 % (0.0-10.0); %Lymphocytes 24.6 % (21.0-51.0); %Monocytes 8.8 % (0.0-10.0); %Neutrophils 57.1 % (42.0-75.0); Hematocrit 25.5 % (42.0-52.0); Hemoglobin 8.2 g/dL (14.0-18.0); Mean Corpuscular HGB CONC 32.2 g/dL (32.0-36.0); Mean Corpuscular Hemoglobin 27.5 pg (27.0-31.0); Mean Corpuscular Volume 85.6 fL (78.0-98.0); Mean Platelet Volume 10.7 fL (7.4-10.4); Platelet Count 219 10x3/uL (130-400); RBC Distribution Width 14.2 % (11.5-14.5); Red Blood Cell (RBC) Count 2.98 mill/uL (4.70-6.10)
[2024-04-15] MEDS: Sodium Ferric Gluconate 250 MG in Sodium Chloride 0.9% 250 ML 250 ML IVPB SCH (10:03)
[2024-04-15] MEDS: Sodium Bicarbonate Tab 325 MG TAB PO SCH (10:04)
[2024-04-15 15:50] VITALS: BP 121/57; TEMP 98
[2024-04-15] MEDS: Sodium Polystyrene Sulfonate 15 GM (60 mL) BOT PO SCH (16:59)
== END 2024-04-15 17:30 | disposition home or self-care (01) ==
LOC: ERS 15:29 → OBS 18:16
PROVIDERS: ADMIT Internal Medicine; ATTEND Internal Medicine
DX: I13.2 Hypertensive heart and chronic kidney disease with heart failure and with stage 5 chronic kidney disease, or end stage renal disease (principal); I50.30 Unspecified diastolic (congestive) heart failure; N17.9 Acute kidney failure, unspecified; N18.6 End stage renal disease; Z99.2 Dependence on renal dialysis; E11.22 Type 2 diabetes mellitus with diabetic chronic kidney disease; E87.21 Acute metabolic acidosis; I34.0 Nonrheumatic mitral (valve) insufficiency; I25.118 Atherosclerotic heart disease of native coronary artery with other forms of angina pectoris; E78.5 Hyperlipidemia, unspecified; D63.1 Anemia in chronic kidney disease; Z79.82 Long term (current) use of aspirin; Z79.899 Other long term (current) drug therapy; Z79.51 Long term (current) use of inhaled steroids
CPT/HCPCS: 36415; 36416; 71045; 80053; 80069; 82140; 83735; 83880; 84484; 85025; 93005; 93010; 96372; 96374; 96375; 96376; G0378; J1644; J2916; J7050; P9047; Q5105